=== PATIENT | male | born 1960 | race Caucasian/White ===

== ENCOUNTER 2019-02-04 09:30 | Observation (INO) ==
[2019-02-04] MEDS ORDERED: NS 500 ML IV ONE (09:49)
[2019-02-04] MEDS ORDERED: REGLAN IV ONE (09:49)
--- NOTE | 2019-02-04 09:53 | PROVIDER DOCUMENTATION ---
HPI-Headache - General Chief Complaint: B/P Problems Stated Complaint: BOOTH,HIGH BP,RINGING IN EAR Time Seen by Provider: 02/04/19 09:42 Allergies/Adverse Reactions: Patient Allergies Allergy/AdvReac Type Severity Reaction Status Date / Time No Known Allergies Allergy Verified 04/05/14 15:21 Home Medications: Home Medication List Medication Instructions Recorded Confirmed Last Taken Type Amoxicillin/Potassium Clav 1 each PO BID #14 tablet 04/05/14 Unknown Rx [Augmentin 875-125 Tablet] - History of Present Illness-Headache Nature of Presenting Problem: Patient reports headache since saturday. He describes the headache as left sided sharp, increasing in intensity since saturday. States he's never had a booth like this before. Denies any trauma, or fever, does report some weakness. Patient states that he has a history of a AAA but he's not had any medical care or evaluation in over 3 years. Reports that he had a recent bp of "290 over something" but is on no medications. Review of Systems - Adult - REVIEW OF SYSTEMS - ADULT Constitutional: reports: no symptoms reported Eyes: reports: no symptoms reported Ears, Nose, Mouth & Throat: reports: no symptoms reported Cardiovascular: reports: no symptoms reported Respiratory: reports: no symptoms reported Gastrointestinal: reports: no symptoms reported Genitourinary: reports: no symptoms reported Musculoskeletal: reports: no symptoms reported Integumentary: reports: no symptoms reported Neurological: reports: see HPI Psychiatric: reports: no symptoms reported Endocrine: reports: no symptoms reported Hematologic/Lymphatic: reports: no symptoms reported Allergic/Immunologic: reports: no symptoms reported All Other Systems: Reviewed and Negative Past History - Adult - PAST MEDICAL HISTORY-ADULT Review of Records: reports: Old Records Reviewed Major Childhood Illnesses: reports: denies history Cardiovascular: reports: aortic disease (AAA), HTN Respiratory: reports: denies history Gastrointestinal: reports: denies history Obstetrical/Gynecological: reports: denies history Genitourinary: reports: kidney stones Musculoskeletal: reports: denies history Neurological: reports: denies history Endocrine/Immune: reports: denies history Other Conditions: reports: denies history - PRIOR SURGERIES/PROCEDURES Surgical/Procedure History: reports: tonsillectomy, orthopedic (extremity) - PRIOR HOSPITALIZATIONS Prior Hospitalizations: reports: none - IMMUNIZATION STATUS Childhood Immunizations: NUTD, See Nurse Assessment Flu Vaccine: See Nurse Assessment - FAMILY HISTORY Family History: reviewed, not pertinent Physical Exam- Neurological - Physical Exam-Neuro Initial Vital Signs Reviewed: Yes General Appearance: mild distress (due to pain) Eye Exam: bilateral eye: normal inspection, PERRL, EOMI HENMT: normocephalic/atraumatic, moist mucous membranes, normal ENT inspection Head Injury: no evidence of injury Neck: non-tender, full range of motion, supple, normal inspection Respiratory: chest non-tender, lungs clear, normal breath sounds Cardiovascular: normal peripheral pulses, regular rate, rhythm, no edema, no gallop, no JVD Abdominal Exam: normal bowel sounds, soft, no organomegaly Lymphatic: no adenopathy Extremity: normal range of motion, non-tender, normal inspection, no pedal edema , no calf tenderness admin secretary Exam: normal hearing, normal speech, PERRL Motor/Sensory: no motor deficit, no sensory deficit Neurologic: admin secretary II-XII nml as tested, grossly normal, no motor/sensory deficits Integumentary: normal color, normal turgor, warm/dry Psych/Mental Status: normal mood/affect, normal thought content, normal thought process, oriented x 3 - Glascow Coma Scale Best Eye Response: (4) open spontaneously Best Verbal Response: (5) oriented Best Motor Response: (6) obeys commands Total Glascow Score: 15 Progress - PLAN OF CARE/RESULTS Progress/Plan/Lab Results: Vital Signs - 8 hr 02/04/19 09:35 Temperature 97.4 F L Pulse Rate 83 Respiratory Rate 20 Blood Pressure 180/107 O2 Sat by Pulse Oximetry 98 Orders Category Date Time Status CHEST-2 VIEWS [RAD] Stat Exams 02/04/19 09:[address] HEAD W/O CONTRAST [CT] Stat Exams 02/04/19 09:47 Ordered CTA [CT ANGIOGRAM AORTA W/RUNOFF] [CT] Stat Exams 02/04/19 09:46 Ordered CTA [CT ANGIOGRAM HEAD] [CT] Stat Exams 02/04/19 09:46 Ordered CBC WITH ELECTRONIC DIFF [HEME] Stat Lab 02/04/19 09:48 Uncollected COMPREHENSIVE METABOLIC PANEL [CHEM] Stat Lab 02/04/19 09:48 Uncollected PROTIME WITH INR [COAG] Stat Lab 02/04/19 09:48 Uncollected PTT [COAG] Stat Lab 02/04/19 09:48 Uncollected SED RATE [HEME] Stat Lab 02/04/19 09:48 Uncollected TROPONIN T Stat Lab 02/04/19 09:[address] W/POSS RFLX CULT [URINALYSIS] Stat Lab 02/04/19 09:48 Uncollected 0.9% Sodium Chloride Inj [Ns] 500 ml Med 02/04/19 09:49 Active IV 999 mls/hr Metoclopramide [Reglan] Med 02/04/19 09:49 Discontinued 10 mg IV NOW ONE - EKG 1 Time of EKG reading by physician:: 09:45 EKG Read and Signed by:: Ron Gregory Rate: 81 Rhythm: sinus [place]: normal QRS: normal Comments: nsst changes Departure - Departure Referrals and Follow-Ups: None,PCP [Primary Care Provider] -
[2019-02-04 10:57] LABS: AGAP 13; ALB/GLOB RATIO 1.5; ALBUMIN 4.3 g/dL (3.5-5.0); ALKALINE PHOSPHATASE 95 U/L (32-122); BUN 17 mg/dL (8-22); CALCIUM 9.1 mg/dL (8.8-10.2); CHLORIDE 104 mmol/L (98-107); COSMO 287; CREATININE 0.9 mg/dL (0.7-1.2); ESTIMATED GFR > 60; GLUCOSE 100 mg/dL (70-104); GOT 42 U/L (10-34); GPT 53 U/L (10-44); SODIUM 143 mmol/L (136-145); TCO2 26 mmol/L (25-35); TOTAL BILIRUBIN 0.56 mg/dL (0.20-1.00); TOTAL PROTEIN 7.1 g/dL (6.3-8.3)
[2019-02-04 10:59] LABS: INR 0.89; PROTIME 12.8 Seconds (11.0-16.0)
[2019-02-04 11:00] LABS: PTT 29.3 Seconds (22.3-41.8)
--- NOTE | 2019-02-04 11:22 | EKG Report ---
Test Performed on : 02/04/2019 09:43:23 AM Test Reason : ED. NO EKG ORDER FOR MUSE Blood Pressure : / mmHG Vent. Rate : 081 BPM Atrial Rate : 081 BPM P-R Int : 190 ms QRS Dur : 078 ms QT Int : 380 ms P-R-T Axes : 039 020 100 degrees QTc Int : 441 ms Normal sinus rhythm. Anteroseptal infarct , age undetermined T wave abnormality, consider lateral ischemia Abnormal ECG When compared with ECG of 26-MAR-2014 12:40, Anteroseptal infarct is now present T wave inversion now evident in Lateral leads Unconfirmed Result
--- NOTE | 2019-02-04 12:32 | Diag Imaging Result Doc PS360 ---
US AORTA - 02/04/2019 INDICATION: h/o aaa TECHNIQUE: COMPARISON: 03/26/2013 FINDINGS: There has been increase in size of the fusiform distal abdominal aortic aneurysm. This now measures 4.7 x 5.6 cm in AP and lateral dimensions. There is grossly normal color Doppler signal. No visible mass or fluid collection. IMPRESSION: Significant increase in size of the fusiform distal abdominal aortic aneurysm. Electronically signed by Elvis Yuan 02/04/2019 12:29 PM
[2019-02-04 12:33] LABS: URINE SOURCE CLEAN CATCH
[2019-02-04 12:35] LABS: BILIRUBIN URINE NEGATIVE (NEGATIVE); BLOOD URINE NEGATIVE (NEGATIVE); COLOR YELLOW; GLUCOSE URINE NEGATIVE (NEGATIVE); KETONE URINE NEGATIVE (NEGATIVE); LEUKOCYTES URINE NEGATIVE (NEGATIVE); NITRITE URINE NEGATIVE (NEGATIVE); PROTEIN URINE TRACE mg/dL (NEGATIVE); SP GRAVITY URINE 1.025; TURBIDITY URINE CLEAR (CLEAR); UROBILINOGEN URINE 6 mg/dL (NORMAL)
[2019-02-04 12:42] LABS: UR EPITHELIAL CELLS <10 /HPF (<10); URINE BACTERIA NEGATIVE /HPF; URINE RBC <10 /HPF (<10); URINE WBC <10 /HPF (<10)
[2019-02-04 12:47] LABS: URINE CRYSTALS CA OXALATE PRESENT
[2019-02-04 13:29] LABS: BASO# 0.04 X1000 (0.0-0.2); BASO% 0.4 % (0.0-0.8); EOS# 0.95 X1000 (0.0-0.7); EOS% 10.2 % (0.0-10.0); HEMOGLOBIN 16.9 g/dL (14.0-18.0); IMM GRAN# 0.03 X1000 (0.0-0.04); IMM GRAN% 0.3 % (0.0-0.5); LYMPH# 2.37 X1000 (1.2-3.4); LYMPH% 25.4 % (20.5-51.1); MCH 30.8 PG (27-31); MCHC 34.5 g/dL (33-37); MCV 89.4 FL (81-99); MONO# 0.76 X1000 (0.11-0.59); MONO% 8.2 % (1.7-9.3); MPV 10.6 FL (7.4-10.4); NEUT# 5.17 X1000 (1.4-6.5); NEUT% 55.5 % (42.2-75.2); PLT 168 X1000 (130-400); RBC 5.48 XMIL (4.7-6.1); RDW 13.7 % (11.5-14.5); WBC 9.32 X1000 (4.8-10.8)
--- NOTE | 2019-02-04 13:37 | Diag Imaging Result Doc PS360 ---
EXAM: CHEST-2 VIEWS HISTORY: weak TECHNIQUE: Chest two views COMPARISON: 03/26/2014 FINDINGS: The lungs are well expanded. The heart is not enlarged. The vessels are not distended. There are no infiltrates. No pleural effusions. Right lower lobe granuloma. IMPRESSION: No acute abnormality. Electronically signed by Mundo Lozano 02/04/2019 1:35 PM
--- NOTE | 2019-02-04 14:24 | Diag Imaging Result Doc PS360 ---
EXAM: CT HEAD W/O CONTRAST INDICATION: head ache TECHNIQUE: This exam was performed using automated exposure control, adjustment of mA or kV according to patient size, and/or use of iterative reconstruction technique. COMPARISON: 03/26/2014 FINDINGS: There is no definite acute infarct given the limited sensitivity of CT versus MRI. There is no discrete intracranial mass, mass effect, or intracranial hemorrhage. The surrounding soft tissues and bony structures are essentially unremarkable. IMPRESSION: No evidence of acute intracranial pathology. Electronically signed by Tin Garg 02/04/2019 2:22 PM
--- NOTE | 2019-02-04 14:36 | Diag Imaging Result Doc PS360 ---
EXAM: CT ANGIOGRAM HEAD INDICATION: headache TECHNIQUE: This exam was performed using automated exposure control, adjustment of mA or kV according to patient size, and/or use of iterative reconstruction technique. Thin section axial images and 3-D MIPS were obtained. COMPARISON: None. FINDINGS: There is mild anasarca calcification at the carotid siphons bilaterally. There is only minimal luminal narrowing. The distal ICAs as well as the distal vertebral arteries are patent, otherwise. There is no evidence of flow-limiting stenosis, vascular malformation, or cerebral aneurysm involving the arteries comprising the [place] including the anterior, middle, and posterior circulations. IMPRESSION: Mild atherosclerotic calcification at the carotid siphons. No evidence of flow-limiting stenosis involving the cerebral vasculature. Electronically signed by Tin Garg 02/04/2019 2:33 PM
[2019-02-04] MEDS ORDERED: CATAPRES PO ONE (15:25)
[2019-02-04] MEDS ORDERED: TORADOL IV PRN (15:26)
[2019-02-04] MEDS ORDERED: NICODERM PATCH TD ONE (15:27)
[2019-02-04] MEDS ORDERED: ATIVAN IV ONE (15:27)
[2019-02-04] MEDS ORDERED: NORVASC PO SCH (15:30)
[2019-02-04] MEDS ORDERED: FIORICET PO PRN (16:54)
[2019-02-04] MEDS ORDERED: APRESOLINE IV PRN ×2 (17:29→18:36)
[2019-02-04] MEDS ORDERED: ZOFRAN IV PRN (17:31)
[2019-02-04] MEDS ORDERED: PRILOSEC PO ONE (18:37)
--- NOTE | 2019-02-04 18:43 | HISTORY AND PHYSICAL ---
PRIMARY CARE PROVIDER: None. CHIEF COMPLAINT: High blood pressure, headache. HISTORY OF PRESENT ILLNESS: Mr. Hairston is a pleasant 58-year-old male who carries a past medical history of hypertension, abdominal aortic aneurysm and kidney stones. He reported on Saturday he started having elevated blood pressure, self-reported 290/160. This is when his headache began and his right eye turned a reddish-pinkish color. He denies any itching or tearing of the eye. He did report some eye soreness as well as photophobia. Given his history of abdominal aortic aneurysm, they did an abdominal ultrasound that showed an increase in size of the distal abdominal aortic aneurysm, measuring at 4.7 x 5.6 cm. Head CTA showed mild atherosclerotic calcification of the carotid siphons, but no evidence of flow-limiting stenosis in the cerebral vasculature. Head CT did not show any evidence of acute intracranial pathology. He was found to be hypertensive than hypertensive. Blood pressure is ranging from 140s to 190s over low 100s. He denies any dizziness, fever, chills, cough, chest pain, shortness of breath, nausea, vomiting, diarrhea, cough. No dysuria. No constipation. No diarrhea. No black or tarry stools. We will admit him to the medical telemetry floor, continue to work on his blood pressure. Dr. Alex Parks has been consulted. He would like to check imaging in the morning to reassess his abdominal aortic aneurysm. We will give him Fioricet for his migraine headache. PAST MEDICAL HISTORY: 1. Hypertension. 2. Abdominal aortic aneurysm. 3. Kidney stones. PAST SURGICAL HISTORY: 1. Tonsillectomy. 2. Plate in his arm as a child secondary to a broken arm. SOCIAL HISTORY: He is from [place]. He smokes 1 pack of cigarettes per day and has done so for the last 45 to 50 years. No alcohol. No illicit drug use. He is not . He has 3 dogs that are like his children. FAMILY HISTORY: Reviewed and noncontributory. HOME MEDICATIONS: None. ALLERGIES: None. REVIEW OF SYSTEMS: Twelve-point review of systems completed and negative except for those mentioned in HPI. PHYSICAL EXAMINATION: VITAL SIGNS: Temperature is 97.9 degrees, heart rate 69, respirations 22. Initial blood pressure 180/107. The patient's blood pressure with treatment did come down to 144/83. He is now back up to 180/102. GENERAL: Mr. Hairston is a pleasant 58-year-old male who is lying on the stretcher with his hands over his eyes secondary to photophobia, but in no acute distress. HEENT: Atraumatic, normocephalic. PERRL. He did have some reddening in his left eye. I did try to do a funduscopic exam and could not really assess anything acutely. NECK: Supple, trachea midline. CV: Heart tones were distant but did appreciate S1, S2. No murmurs, gallops or rubs. RESPIRATORY: Lung sounds clear bilaterally. GASTROINTESTINAL: Soft, nontender, nondistended. Positive bowel sounds 4 quadrants. I could not appreciate any mass or pulsation. EXTREMITIES: Negative for edema. Bilateral pedal pulses are palpable. NEUROLOGIC: No focal deficits noted. DIAGNOSTIC DATA: Head CTA: Mild atherosclerotic calcification of the carotid siphons. No evidence of flow-limiting stenosis. Head CT: No evidence of acute intracranial pathology. Abdominal ultrasound showed significant increase in the size of the abdominal aortic aneurysm, 4.7 x 5.6 cm. LABORATORY DATA: White count 9, hemoglobin and hematocrit 16 and 49, platelet count is 168,000. Sodium 143, potassium 4.0, BUN 70, creatinine 0.9, blood glucose is 100. AST is 42, ALT 53. Urinalysis was negative, trace protein. ASSESSMENT AND PLAN: 1. Accelerated hypertension. We will continue with p.r.n. Apresoline, Norvasc b.i.d. We will continue to add p.r.n. as necessary. 2. Migraine headache. We will continue with Toradol intravenously q.6 hours p.r.n. for 2 days and Fioricet p.r.n. 3. Abdominal aortic aneurysm that has increased in diameter since last exam. The patient did receive 2 CT scans today with contrast. Dr. Parks was consulted. He will CT the abdomen in the a.m. to reassess. We will go ahead and check an echocardiogram to evaluate his cardiac output and valvular function. 4. History of kidney stones. 5. Further recommendations to follow physician evaluation, laboratory and diagnostic data. Dictated by JOE Cannon for Simone Lima MD cc: MD Charlie Gallegos MD
--- NOTE | 2019-02-04 19:19 | HISTORY AND PHYSICAL ---
ADDENDUM: Chief complaint was headache. He felt he had something pop in his left eye and headache, and he thought maybe he had an aneurysm that popped. His blood pressure was not under good control when he came in, and he has not sought medical care for 3 years. He has a known abdominal aortic aneurysm, which has not really been followed up on. His workup in the ER was negative except for large abdominal aortic aneurysm which was 4 x 5 cm. The patient will be placed in observation for this and we will continue to monitor. Surgery has been consulted for evaluation. We will work on blood pressure control. We started Norvasc. We will work on headache control as well, which it just sounds like he has a migraine or it may just be related to his blood pressure. We will continue to follow. His abdominal aortic aneurysm will need to be evaluated. He may need a cardiac clearance first. We will continue to monitor. This was a [id number] encounter note with JOE Snider. His exam is really unremarkable. I did not appreciate a bruit. His lungs are clear. Regular rate and rhythm. cc: Simone Lima MD
--- NOTE | 2019-02-04 19:48 | GENERAL SURGERY CONSULTATION ---
DATE: 02/04/2019 HISTORY OF PRESENT ILLNESS: This is a gentleman who has had a known abdominal aortic aneurysm since 2013. He has not been followed medically at all for any medical problems. He has had hypertension that has been noncontrolled. He had kind of a presyncopal episode with pulsatile vision, headache, and left eye color changes. He came to the ER. He called an ambulance and his blood pressure was apparently 290 systolic, but he elected not to go to the ER and he came later, where workup showed some atherosclerotic changes in his brain, but no acute cerebral issue, and an ultrasound showed a 4.7 x 5.6 cm abdominal aortic aneurysm. His blood pressure is being controlled. He feels some better. He denies any nausea or vomiting, no abdominal pain, no back pain, no leg pain. I was consulted regarding the aneurysm. MEDICAL HISTORY: Hypertension, AAA, and kidney stone. SURGICAL HISTORY: Tonsillectomy, and has had an arm surgery from a broken arm. SOCIAL HISTORY: A pack a day since he was 13. He lives in [place]. No alcohol. No drugs. Not . He is retired from previous industrial construction. FAMILY HISTORY: Reviewed and negative for aneurysms or cancer. REVIEW OF SYSTEMS: 10 point negative. PHYSICAL EXAMINATION: Vital Signs: He is afebrile. Pulse in the 60s to 70s. Blood pressures range from 140s systolic to 180s. His oxygen saturation is mid 90s on room air. General: He is 160 pounds, 6 feet 2 inches. General: He is alert, in no acute distress. HEENT: No scleral icterus. No cervical mass. Cardiovascular: Normal rate. Pulmonary: No increased work of breathing. Abdomen: Protuberant, but soft. There is no pulsatile mass. Integument: Warm and dry without jaundice. Psychiatric: Appropriate affect. Neurologic: No gross deficits. Lymphatic: No cervical, axillary, or inguinal adenopathy. Peripheral Vascular: He has palpable femoral pulses, palpable popliteal, but not aneurysmal, and palpable pedal pulses with normal capillary refill. LABS: White count is 9, hematocrit is 49, platelets 168,000. Creatinine is 0.9, INR is 0.98, bilirubin 0.56. Urinalysis negative for nitrites and leukocytes. I reviewed his CT scans of his head, his CTA, and his abdominal aorta ultrasound. ASSESSMENT AND PLAN: A 58-year-old gentleman with an enlarging aneurysm since 2012. This has not been followed and he has never had a CTA of his abdomen to define the lesion. He has been admitted for blood pressure control. I agree with this and discussed the importance of this with the patient. We will obtain a CT angiogram of his abdomen prior to discharge, and continue hydration as he did have a contrast load in the emergency room for his headache. Ultimately, he will require an elective repair for this asymptomatic 5.6 cm aneurysm if CTA confirms this. cc: Charlie Parks MD
[2019-02-04] MEDS: NORVASC PO SCH (21:05)
[2019-02-05] MEDS ORDERED: PRILOSEC PO SCH (07:00)
[2019-02-05 07:55] LABS: BASO# 0.03 X1000 (0.0-0.2); BASO% 0.4 % (0.0-0.8); EOS# 0.67 X1000 (0.0-0.7); EOS% 9.7 % (0.0-10.0); HEMATOCRIT 45.3 % (42.0-52.0); HEMOGLOBIN 15.7 g/dL (14.0-18.0); IMM GRAN# 0.03 X1000 (0.0-0.04); IMM GRAN% 0.4 % (0.0-0.5); LYMPH# 2.46 X1000 (1.2-3.4); LYMPH% 35.7 % (20.5-51.1); MCH 31.1 PG (27-31); MCHC 34.7 g/dL (33-37); MCV 89.7 FL (81-99); MONO# 0.69 X1000 (0.11-0.59); MPV 9.9 FL (7.4-10.4); NEUT# 3.02 X1000 (1.4-6.5); NEUT% 43.8 % (42.2-75.2); PLT 170 X1000 (130-400); RBC 5.05 XMIL (4.7-6.1); RDW 13.6 % (11.5-14.5)
[2019-02-05 08:28] LABS: AGAP 11; ALB/GLOB RATIO 1.5; ALBUMIN 3.9 g/dL (3.5-5.0); ALKALINE PHOSPHATASE 79 U/L (32-122); BUN 17 mg/dL (8-22); CALCIUM 8.9 mg/dL (8.8-10.2); CHLORIDE 104 mmol/L (98-107); COSMO 279; CREATININE 0.8 mg/dL (0.7-1.2); ESTIMATED GFR > 60; GLUCOSE 91 mg/dL (70-104); GOT 38 U/L (10-34); GPT 47 U/L (10-44); POTASSIUM 3.8 mmol/L (3.5-5.1); SODIUM 139 mmol/L (136-145); TCO2 24 mmol/L (25-35); TOTAL BILIRUBIN 0.77 mg/dL (0.20-1.00); TOTAL PROTEIN 6.5 g/dL (6.3-8.3)
[2019-02-05] MEDS: NORVASC PO SCH (08:45)
--- NOTE | 2019-02-05 16:15 | Diag Imaging Result Doc PS360 ---
EXAM: CT ANGIOGRAM AORTA W/RUNOFF 02/05/2019 HISTORY: aaa TECHNIQUE: This exam was performed using automated exposure control, adjustment of mA or kV according to patient size, and/or use of iterative reconstruction technique. COMMENT: 3-D MIPS were performed. The visualized portion of the chest is unremarkable. There is an infrarenal abdominal aortic aneurysm measuring 5.3 cm just below the level of the takeoff of the inferior mesenteric artery. At the time the previous CT of 09/22/2012 this measured 3.2 cm and on ultrasonography on 02/04/2019 it measured 4.7 cm in AP dimension. The mesenteric and renal arteries are patent. The appendix is normal in appearance. There is no evidence of bowel obstruction. There is a 6 mm stone in the lower pole of the left kidney. There is no evidence of hydronephrosis. The gallbladder is not distended and there are no apparent gallstones. There is apparent portacaval and periportal adenopathy, which has worsened slightly since 09/22/2012. There are granulomatous calcifications in the spleen. The spleen is at the upper limits of normal in size, again larger than on the previous study now exceeding 13 cm. The liver is slightly nodular in contour and the possibility of cirrhosis cannot be excluded. There are no abnormal fluid collections. There is atherosclerotic calcification in the iliac arteries bilaterally. The common and external iliac arteries are patent. There is some plaque formation in the proximal left superficial femoral artery. Both superficial femoral arteries are patent. Both popliteal arteries are patent. The tibioperoneal trunk and calf vessels are patent bilaterally. There is contrast seen in the posterior tibial arteries below the ankle bilaterally. IMPRESSION: Abdominal aortic aneurysm as described. Cirrhosis and borderline splenomegaly. Worsening portacaval and dontae hepatis adenopathy. Electronically signed by Lance Monsivais 02/05/2019 4:12 PM
[2019-02-05 16:44] VITALS: BP 154/96
--- NOTE | 2019-02-05 18:22 | ECHO REPORT ---
ORDER DATE: 02/04/2019 INDICATION: Dyspnea. M-MODE MEASUREMENTS: Left ventricle end diastole: 4.5. Left ventricle end systole: 3.1. Posterior wall: 1.5. Interventricular septum: 1.5. Left atrium: 3.6. Aortic diameter: 3.7. SUMMARY OF 2-DIMENSIONAL IMAGIN. Left ventricular function is normal. Ejection fraction is 65%. There is no wall motion abnormality noted. 2. The right ventricle is normal. 3. The atria appear to be normal. 4. The aortic valve has 3 cusps. They open normally. Color flow mapping unremarkable. 5. The pulmonic valve is normal. Color flow mapping unremarkable. 6. The mitral valve is normal. Color flow mapping unremarkable. 7. Pulsed wave Doppler of mitral inflow is normal. 8. Tissue Doppler of septal and lateral mitral annulus averages 6 cm. 9. Pulmonary venous flow is normal. 10.There is no diastolic dysfunction. 11.The tricuspid valve is normal. Pulmonary pressure cannot be calculated. 12.The inferior vena cava is not dilated. 13.The pulmonic valve appears to be normal. 14.At the end of the study, Optison was added because the study was technically difficult. The chambers were well visualized. SUMMARY: This study shows: 1. Normal left ventricular systolic function. 2. No diastolic dysfunction. 3. No evidence of any significant valvular abnormality. 4. No pulmonary hypertension. Clinical correlation recommended. cc: Dany Lopez MD
--- NOTE | 2019-02-05 20:10 | GENERAL SURGERY PROGRESS NOTE ---
DATE: 02/05/2019 SUBJECTIVE: Feels okay. Headaches are resolved. No abdominal pain. No back pain. He is very anxious about being in the hospital. OBJECTIVE: Afebrile. Pulse 77. Blood pressures have been systolics in the 140s mostly. Oxygen saturation is high 90s on room air. Generally he is alert. Abdomen is soft. There is no pulsatile mass. Extremities are well perfused. LABORATORY DATA: White count is 6, hematocrit 45. Creatinine 0.8. DIAGNOSTIC DATA: I have reviewed his CT angiogram that was obtained this afternoon. It shows an infrarenal abdominal aortic aneurysm, 5.3 cm, with no evidence of dissection, rupture or ischemia. ASSESSMENT AND PLAN: This is a 58-year-old gentleman admitted with hypertensive urgency. He has a 5.3 cm abdominal aortic aneurysm. He is approaching criteria for elective repair. He is asymptomatic, with normal distal perfusion. We will follow him as an outpatient. I have discussed the importance of strict blood pressure control going forward. He understands. I have also encouraged smoking cessation. cc: Charlie Parks MD
--- NOTE | 2019-02-06 06:47 | DISCHARGE SUMMARY ---
ADMISSION DATE: 02/04/2019 DISCHARGE DATE: 02/05/2019 DISCHARGE DISPOSITION: Home. DISCHARGE CONDITION: Stable hemodynamically. Alert and oriented x3. Denies any nausea, vomiting, or headache. Mortgage Clerk team is working on getting him medication under [facility] especially amlodipine. DISCHARGE DIAGNOSES: 1. Hypertensive emergency leading to headache. 2. Enlarging abdominal aortic aneurysm. 3. Asymptomatic nephrolithiasis. 4. Medication noncompliance with history of essential hypertension . OTHER DIAGNOSES: 1. Essential hypertension. 2. Multiple and recurrent nephrolithiasis requiring lithotripsy in the past. 3. Abdominal aortic aneurysm. 4. Active tobacco use. CONSULTATIONS DURING HOSPITALIZATION: General Surgery Dr. Parks. DISCHARGE MEDICATIONS: Amlodipine 10 mg daily 30 tablets have been prescribed. VITALS: At the time of discharge, temperature 97.7 degrees, pulse 77, respiratory rate 15, blood pressure 150/96 and saturating 99% on room air. PHYSICAL EXAMINATION: General: Does not appear in any acute distress. Oral cavity is moist. Lungs: Air entry bilaterally equal. No wheezing, rhonchi or crackles. Heart: S1, S2 normal. No murmur or gallop. Abdomen: Soft, nontender. Extremities: No lower extremity edema. HEENT: He has conjunctival erythema affecting left eye. SIGNIFICANT LABORATORY AT TIME OF DISCHARGE: WBC 6.9, hemoglobin 15.7, and platelet count 170,000. Electrolytes normal with BUN 17, creatinine 0.8, AST 38, and ALT 47. His urinalysis had calcium oxalate crystals. SIGNIFICANT IMAGING DURING HOSPITAL ADMISSION: Head CT angiography on admission because of headache. Mild atherosclerotic calcification of carotid siphons without any flow-limiting stenosis. Head CT had no evidence of acute intracranial pathology. Abdominal ultrasound had significant increase in the size of the fusiform distal abdominal aortic aneurysm to about 4.7 x [address] angiography had abdominal aortic aneurysm measuring 5.3 cm below the level of the inferior mesenteric artery with patent mesenteric and renal arteries. HOSPITAL COURSE SUMMARY: Mr. Hairston is a 58 year old man with past medical history of active tobacco use, essential hypertension, nephrolithiasis, and abdominal aortic aneurysm who had self-reported blood pressure of 290/160 at home at which point his headache began in right eye, and his eye started turning pink. He also had some eye soreness and photophobia. With these complaints, he came to the emergency room. While in the emergency room, he underwent CT scan imaging of his head considering his hypertensive emergency with systolic blood pressure more than 190 and his headache. Head imaging did not detect any acute intracranial pathology. Angiography of head also did not have any significant stenosis. He was started on intravenous blood pressure medication and amlodipine. At the time of discharge, his blood pressure was in acceptable range. Considering history of abdominal aortic aneurysm, he also underwent abdominal ultrasound and later on CT scan angiography of aorta which had detected abdominal aortic aneurysm of about 5.3 cm below the level of inferior mesenteric artery. Surgery Team had consulted, and they had just recommended blood pressure medication with outpatient follow-up. The patient was advised to quit smoking. At the time of discharge, the patient did not have any money to buy his amlodipine so social work team has been consulted about getting him [facility] qualification and help with the medication. TIME SPENT: More than 30 minutes were spent discharging this patient. cc: Antonio Pelayo MD
== END 2019-02-05 17:22 | disposition home or self-care (01) ==
LOC: ED 09:30 → 3N 09:30 → SUATTDRO 15:37 → 3N 16:35
PROVIDERS: ATTEND Internal Medicine
CPT/HCPCS: 70450; 70496; 71020; 71046; 75635; 76775; 80053; 81001; 84484; 85025; 85610; 85651; 85730; 93005; 93306; A9270; C8929; J2060; J2765; J7040; Q9957; Q9967